=== PATIENT | male | born 1995 | race Caucasian/White ===

== ENCOUNTER 2022-07-10 15:37 | Inpatient (IN) ==
[2022-07-10 16:28] LABS: Basophils # (auto) 0.02 K/uL (0-0.2); Basophils % (auto) 0.2 %; Eosinophils # (auto) 0.05 K/uL (0-0.50); Eosinophils % (auto) 0.6 %; Hematocrit (blood only) 41.6 % (42.0-52.0); Hemoglobin 14.4 g/dl (14.0-18.0); Immature Granulocytes # (auto) 0.02 K/uL (0.01-0.20); Immature Granulocytes % (auto) 0.2 %; Lymphocytes # (auto) 0.98 K/uL (1.2-3.4); Lymphocytes % (auto) 10.8 %; Mean Corpuscular Hemoglobin 28.8 pg (25.0-34.0); Mean Corpuscular Hgb Conc 34.6 g/dL (32.0-36.0); Mean Corpuscular Volume 83.2 fL (80.0-100.0); Monocytes # (auto) 0.88 K/uL (0.11-0.59); Monocytes % (auto) 9.7 %; Neutrophils # (auto) 7.12 K/uL (1.40-6.50); Neutrophils % (auto) 78.5 %; Platelet Count 310 K/uL (130-400); RDW Coefficient of Variation 11.9 % (11.5-14.5); RDW Standard Deviation 36.5 fL (36.4-46.3); White Blood Count 9.07 K/ul (4.8-10.8)
[2022-07-10] MEDS ORDERED: SODIUM CHLORIDE 0.9% 1000ML 1,000 ML IV ONE ×2 (16:38→18:02)
--- NOTE | 2022-07-10 16:46 | Emergency Department Note ---
Impression & Plan Acute perforated appendicitis, Acute appendicitis ED Provider Note NAME: ALTON PLASCENCIA AGE: 26 SEX: M : 1995 ARRIVES VIA: Walk-In INFORMANT: Patient, ED PROVIDER(S): Anton Elizabeth DO CHIEF COMPLAINT: Abdominal pain HPI: The patient is a 26-year-old male who presented to the emergency department at the request of [facility] for an evaluation of abdominal pain. The patient states that he started having diffuse abdominal pain associated with gas. He was not sure if it was something he ate. This began about a week ago. The patient pr esents to the emergency department after being seen at [facility]. He had laboratory studies drawn and was told that his renal function was high and he needed a CAT scan of his abdomen to rule out appendicitis. The patient has no surgical history on his abdomen. He denies having any testicular pain. Initially he did have some decreased p.o. intake. After he was seen in an urgent care center approximately 3 days ago he has been taking ibuprofen. ROS: See above HPI for pertinent positives & negatives. A total of 10 systems reviewed and were otherwise negative. PAST MEDICAL HISTORY: See Below PAST SURGICAL HISTORY: See Below FAMILY HISTORY: See Below SOCIAL HISTORY: See Below HOME MEDICATIONS: See Below ALLERGIES: See Below VITALS: See Below PHYSICAL EXAMINATION: GENERAL: Patient is awake alert in no acute distress patient is resting comfortably and showing no signs of anxiety EYES: The conjunctivae are clear. The pupils are round and reactive. EARS, NOSE, MOUTH AND THROAT: The nose is without any evidence of any deformity. Mucous membranes are moist. Tongue is midline. NECK: The neck is nontender and supple. RESPIRATORY: Normal respiratory effort is noted there is no evidence of wheezing rhonchi or rales CARDIOVASCULAR: Regular rate and rhythm noted there no murmurs rubs or gallops normal S1 normal S2. GASTROINTESTINAL: The abdomen is soft and nondistended. There is right lower quadrant tenderness to palpation. There is no guarding rigidity. MUSCULOSKELETAL/EXTREMITIES: There is no evidence of gross deformity full range of motion is noted in the hips and shoulders. SKIN: There is no obvious evidence of any rash. There are no petechiae, pallor or cyanosis noted. NEUROLOGIC: Patient is awake alert and oriented x3. Gait was steady. MEDICAL DECISION MAKING: The patient is a 26-year-old male who presented to the emergency department for an evaluation of abdominal pain. The patient's history and physical exam was consistent with appendicitis. He has had pain since last week. The patient's laboratory results did not reveal significant elevation in his white blood cell count but he did have an elevation in his creatinine. The patient was treated with IV fluids multiple boluses. He was also given IV antibiotics after CT appeared to be consistent with a perforated appendicitis. I discussed patient's laboratory and radiographic studies with him. I discussed his condition with the on-call general surgeon. They have agreed to evaluate the patient in the emergency department for further management and disposition. Triage Nursing notes reviewed. Prior medical records reviewed Vital Signs: reviewed and remarkable for elevated blood pressure. Differential diagnosis: Etiologies such as appendicitis, diverticulitis, obstruction, inflammatory bowel disease, renal colic, PUD, biliary pathology, pancreatitis, mesenteric ischemia, aortic pathology, infections, genitourinary, UTI, perforated viscus, as well as others were entertained. ER treatment provided: See below Diagnostics interpreted by me: ECG: none Cardiac Monitoring: An order was placed for continuous cardiac monitoring. The monitor shows a rate of 57 bpm with sinus bradycardia. Laboratory studies: As stated above and show below. Imaging studies: See below. Radiographic imaging was reviewed by myself Consultation(s): I discussed this case with Dr. Mak who is on-call for the general surgical group. Past Med/Surg History Social History Smoking Status: Never smoker Feels Safe at Home: Yes Allergies Allergies Allergy/AdvReac Type Severity Reaction Status Date / Time pollen extracts Allergy Mild Congested Verified 07/10/22 20:08 Home Meds Home Medications Medication Instructions Recorded Confirmed No Known Home Medications 07/10/22 07/10/22 Results & Data (ED) Vital Signs Vital Signs - 24 hr 07/10/22 16:06 07/10/22 16:54 07/10/22 18:09 Temperature 37.2 C Temperature Source Temporal Artery Scan Pulse Rate 61 Pulse Rate [Finger] 63 57 L Respiratory Rate 18 18 16 Respiratory Effort / Characteristics Non-Labored Spontaneous Non-Labored Spontaneous Non-Labored Spontaneous Respiratory Depth Normal Normal Normal Respiratory Pattern Regular Blood Pressure 136/72 Blood Pressure [Right Arm] 129/70 142/77 H Blood Pressure Mean 93 Blood Pressure Mean [Right Arm] 89 98 Blood Pressure Position Sitting Blood Pressure Position [Right Arm] Sitting Pulse Oximetry 98 98 100 Oxygen Delivery Method Room Air Room Air Room Air Sepsis Recent Fever Within 48 Hours No Sepsis New/Unexplained Change in Mental Status N/A Sepsis Action Taken by Nursing No Action Required Home Medications Current Medication List: was personally reviewed by me Laboratory Data Attestation: I reviewed the patient's lab results. 07/10/22 16:14 07/10/22 16:14 Lab Results 07/10/22 07/10/22 07/10/22 Range/Units 16:14 16:14 16:14 WBC 9.07 (4.8-10.8) K/ul RBC 5.00 (4.70-6.10) M/uL Hgb 14.4 (14.0-18.0) g/dl Hct 41.6 L (42.0-52.0) % MCV 83.2 (80.0-100.0) fL MCH 28.8 (25.0-34.0) pg MCHC 34.6 (32.0-36.0) g/dL RDW Std Deviation 36.5 (36.4-46.3) fL RDW Coeff of Harlan 11.9 (11.5-14.5) % Plt Count 310 (130-400) K/uL MPV 10.0 (9.4-12.4) fL Immature Gran % (Auto) 0.2 % Neut % (Auto) 78.5 % Lymph % (Auto) 10.8 % [place] % (Auto) 9.7 % Eos % (Auto) 0.6 % Baso % (Auto) 0.2 % Neut # (Auto) 7.12 H (1.40-6.50) K/uL Lymph # (Auto) 0.98 L (1.2-3.4) K/uL [place] # (Auto) 0.88 H (0.11-0.59) K/uL Eos # (Auto) 0.05 (0-0.50) K/uL Baso # (Auto) 0.02 (0-0.2) K/uL Immature Gran # (Auto) 0.02 (0.01-0.20) K/uL Sodium 137 (136-145) mmol/L Potassium 3.9 (3.5-5.1) mmol/L Chloride 102 (98-107) mmol/L Carbon Dioxide 28 (21-32) mmol/L Anion Gap 7 (3-11) BUN 20 (6-23) mg/dl Creatinine 1.47 H (0.6-1.4) mg/dl Est Cr Clr Drug Dosing 94.4 ml/min Est GFR ( Amer) 74.2 ml/min Est GFR (Non-Af Amer) 64.0 ml/min BUN/Creatinine Ratio 13.6 (10-20) Glucose 88 (70-99(Fasting)) mg/dl Calcium 9.0 (8.5-10.1) mg/dl Total Bilirubin 0.6 (0.2-1.0) mg/dl AST 11 L (13-39) U/L ALT 14 (7-52) U/L Alkaline Phosphatase 76 (34-104) U/L Total Creatine Kinase 79 (30-223) U/L Total Protein 7.3 (6.0-8.3) gm/dl Albumin 4.3 (3.4-5.0) gm/dl Globulin 3.0 (2.5-4.0) gm/dl Albumin/Globulin Ratio 1.4 (0.9-2) Lipase 38 (11-82) U/L Urine Color Urine Appearance (Clear) Urine pH (4.5-7.5) Ur Specific [place] (1.000-1.030) Urine Protein (Negative) Urine Glucose (UA) (Negative) Urine Ketones (Negative) Urine Blood (Negative) Urine Nitrite (Negative) Urine Bilirubin (Negative) Urine Urobilinogen (Negative) Ur Leukocyte Esterase (Negative) Urine WBC (Auto) (0-5) /hpf Urine RBC (Auto) (0-4) /hpf U Hyaline Cast (Auto) (0-5) /lpf U Epithel Cells (Auto) (0-5) /lpf Urine Bacteria (Auto) (Negative) SARS-CoV-2, RNA, NAAT (NEGATIVE) 07/10/22 07/10/22 Range/Units 17:35 18:23 WBC (4.8-10.8) K/ul RBC (4.70-6.10) M/uL Hgb (14.0-18.0) g/dl Hct (42.0-52.0) % MCV (80.0-100.0) fL MCH (25.0-34.0) pg MCHC (32.0-36.0) g/dL RDW Std Deviation (36.4-46.3) fL RDW Coeff of Harlan (11.5-14.5) % Plt Count (130-400) K/uL MPV (9.4-12.4) fL Immature Gran % (Auto) % Neut % (Auto) % Lymph % (Auto) % [place]cl[place] % (Auto) % Eos % (Auto) % Baso % (Auto) % Neut # (Auto) (1.40-6.50) K/uL Lymph # (Auto) (1.2-3.4) K/uL [place] # (Auto) (0.11-0.59) K/uL Eos # (Auto) (0-0.50) K/uL Baso # (Auto) (0-0.2) K/uL Immature Gran # (Auto) (0.01-0.20) K/uL Sodium (136-145) mmol/L Potassium (3.5-5.1) mmol/L Chloride (98-107) mmol/L Carbon Dioxide (21-32) mmol/L Anion Gap (3-11) BUN (6-23) mg/dl Creatinine (0.6-1.4) mg/dl Est Cr Clr Drug Dosing ml/min Est GFR ( Amer) ml/min Est GFR (Non-Af Amer) ml/min BUN/Creatinine Ratio (10-20) Glucose (70-99(Fasting)) mg/dl Calcium (8.5-10.1) mg/dl Total Bilirubin (0.2-1.0) mg/dl AST (13-39) U/L ALT (7-52) U/L Alkaline Phosphatase (34-104) U/L Total Creatine Kinase (30-223) U/L Total Protein (6.0-8.3) gm/dl Albumin (3.4-5.0) gm/dl Globulin (2.5-4.0) gm/dl Albumin/Globulin Ratio (0.9-2) Lipase (11-82) U/L Urine Color Dark Yellow Urine Appearance Clear (Clear) Urine pH 6.0 (4.5-7.5) Ur Specific [place] 1.028 (1.000-1.030) Urine Protein Trace H (Negative) Urine Glucose (UA) Negative (Negative) Urine Ketones Negative (Negative) Urine Blood Negative (Negative) Urine Nitrite Negative (Negative) Urine Bilirubin Negative (Negative) Urine Urobilinogen Negative (Negative) Ur Leukocyte Esterase Negative (Negative) Urine WBC (Auto) 1-5 (0-5) /hpf Urine RBC (Auto) 0-4 (0-4) /hpf U Hyaline Cast (Auto) 1-5 (0-5) /lpf U Epithel Cells (Auto) 0-5 (0-5) /lpf Urine Bacteria (Auto) Negative (Negative) SARS-CoV-2, RNA, NAAT NEGATIVE (NEGATIVE) Administered Medications Discontinued Medications Sodium Chloride (Nss 1000ml) 1,000 mls @ 999 mls/hr IV .Q1H1M ONE Stop: 07/10/22 17:38 Last Infusion: 07/10/22 17:58 Dose: 0 mls/hr Documented By: Admin: 07/10/22 16:54 Dose: 999 mls/hr Documented By: DUNCAN Piperacillin Sod/Tazobactam Sod (Zosyn) 4.5 gm in 120 mls @ 240 mls/hr IV NOW ONE Stop: 07/10/22 18:31 Last Infusion: 07/10/22 19:05 Dose: 0 mls/hr Documented By: Admin: 07/10/22 18:06 Dose: 240 mls/hr Documented By: DUNCAN Sodium Chloride (Nss 1000ml) 1,000 mls @ 999 mls/hr IV .Q1H1M ONE Stop: 07/10/22 19:02 Last Infusion: 07/10/22 19:05 Dose: 0 mls/hr Documented By: Admin: 07/10/22 18:07 Dose: 999 mls/hr Documented By: DUNCAN Imaging Data Radiologist's Impression: Abdomen/Pelvis CT 07/10/22 16:[address] WITHOUT CONTRAST CT DOSE: 562.58 mGycm HISTORY: Right lower quadrant abdominal pain. TECHNIQUE: Multiaxial CT images of the abdomen and pelvis were performed without contrast. A dose lowering technique was utilized adhering to the principles of ALARA. COMPARISON STUDY: None. FINDINGS: The lung bases are clear. No pneumoperitoneum. No pneumatosis. The spleen is mildly enlarged. The unenhanced liver, gallbladder, pancreas, adrenal glands, and kidneys are unremarkable. No hydronephrosis. No retroperitoneal lymphadenopathy. Normal caliber abdominal aorta. Trace pelvic free fluid. Bladder wall thickening is likely due to underdistention. There are suboptimal evaluation for bowel pathology due to the lack of intravenous and oral contrast. However, there are no dilated loops of bowel to suggest an obstruction. There is ileocolic lymphadenopathy. There is inflammatory change within the right lower quadrant with an ill-defined round hypodense area within the right lower quadrant measuring approximately 6.2 cm. This is best seen on image 306. This abuts the cecal base. A normal appendix is not identified. Therefore, these findings favor perforated acute appendicitis with a developing phlegmon/abscess. This suspected developing phlegmon/abscess also abuts and displaces the distal ileum. Mild to moderate thickening of the distal ileum is likely reactive to the suspected appendicitis. IMPRESSION: There is inflammatory change within the right lower quadrant with an ill-defined round hypodense area within the right lower quadrant measuring approximately 6.2 which abuts the cecal base. A normal appendix is not identified. Therefore, these findings favor perforated acute appendicitis with a developing phlegmon/abscess. This suspected developing phlegmon/abscess also abuts and displaces the distal ileum. Mild to moderate thickening of the distal ileum is likely reactive to the suspected appendicitis. Of note, a terminal ileitis with secondary inflammatory change/phlegmon should also be considered within the d ifferential diagnosis but is considered less likely. ACT 112: Negative or not required by law. Electronically signed by: Munir Bass M.D. 07/10/2022 6:16 PM Discharge Plan Visit Data Chief Complaint: Abnormal Labs/Diagnostic Testing Stated Complaint: ABNORMAL LAB, REF FROM [facility] ED Provider: Anton Elizabeth Discharge Problem: Acute perforated appendicitis, Acute appendicitis Patient Disposition: Being Evaluated by Surgeon Forms Stand Alone Forms: My [facility] Prescriptions Prescriptions: No Action No Known Home Medications Referrals Referrals: PCP,NO [Physician] -
[2022-07-10 16:48] LABS: Albumin Level 4.3 gm/dl (3.4-5.0); Bilirubin,Total 0.6 mg/dl (0.2-1.0); Potassium 3.9 mmol/L (3.5-5.1)
[2022-07-10 16:54] LABS: Albumin Globulin Ratio 1.4 (0.9-2); BUN Creatinine Ratio 13.6 (10-20); Creatinine Clr Calc Pharmacy 94.4 ml/min; Est GFR (African American) 74.2 ml/min; Total Protein 7.3 gm/dl (6.0-8.3)
[2022-07-10 17:47] LABS: Appearance Urine Clear (Clear); Bacteria Urine Automated Negative (Negative); Bilirubin Urine Negative (Negative); Blood Urine Negative (Negative); Color Urine Dark Yellow; Epithelial Cell Urine Auto 0-5 /lpf (0-5); Glucose Urine UA Negative (Negative); Ketones Urine Negative (Negative); Leukocyte Esterase Urine Negative (Negative); Nitrite Urine Negative (Negative); Protein Urine Trace (Negative); RBC Urine Automated 0-4 /hpf (0-4); Specific Gravity Urine 1.028 (1.000-1.030); Urobilinogen Urine Negative (Negative)
[2022-07-10] MEDS ORDERED: PIPERACILLIN/TAZOBACTAM 4.5 GM/120 ML BAG IV ONE (18:02)
--- NOTE | 2022-07-10 18:19 | CT Scan Report ---
ABDOMEN AND PELVIS CT WITHOUT CONTRAST CT DOSE: 562.58 mGycm HISTORY: Right lower quadrant abdominal pain. TECHNIQUE: Multiaxial CT images of the abdomen and pelvis were performed without contrast. A dose lo wering technique was utilized adhering to the principles of ALARA. COMPARISON STUDY: None. FINDINGS: The lung bases are clear. No pneumoperitoneum. No pneumatosis. The spleen is mildly enlarge d. The unenhanced liver, gallbladder, pancreas, adrenal glands, and kidneys are unremarkable. No hydr onephrosis. No retroperitoneal lymphadenopathy. Normal caliber abdominal aorta. Trace pelvic free flu id. Bladder wall thickening is likely due to underdistention. There are suboptimal evaluation for bow el pathology due to the lack of intravenous and oral contrast. However, there are no dilated loops of bowel to suggest an obstruction. There is ileocolic lymphadenopathy. There is inflammatory change wi thin the right lower quadrant with an ill-defined round hypodense area within the right lower quadran t measuring approximately 6.2 cm. This is best seen on image 306. This abuts the cecal base. A normal appendix is not identified. Therefore, these findings favor perforated acute appendicitis with a dev eloping phlegmon/abscess. This suspected developing phlegmon/abscess also abuts and displaces the dis kevin ileum. Mild to moderate thickening of the distal ileum is likely reactive to the suspected append icitis. IMPRESSION: There is inflammatory change within the right lower quadrant with an ill-defined round hypodense area within the right lower quadrant measuring approximately 6.2 which abuts the cecal base. A normal lo endix is not identified. Therefore, these findings favor perforated acute appendicitis with a develop ing phlegmon/abscess. This suspected developing phlegmon/abscess also abuts and displaces the distal ileum. Mild to moderate thickening of the distal ileum is likely reactive to the suspected appendicit is. Of note, a terminal ileitis with secondary inflammatory change/phlegmon should also be considered within the differential diagnosis but is considered less likely. ACT 112: Negative or not required by law. Electronically signed by: Munir Bass M.D. 07/10/2022 6:16 PM
--- NOTE | 2022-07-10 19:33 | Surgery Consultation ---
Date of Consultation July 10, 2022 Assessment & Plan (1) Acute perforated appendicitis: with phelgmon in right lower quadrant. No abscess seen. Discussed that initial treatment is nonoperative with IVF resuscitation, bowel rest, IV antibiotics. If does not improve, would repeat CT scan in 48-72 hrs to assess for developing abscess (contrast preferred if possible by then). History of Present Illness Reason for Consultation: perforated appendicitis Requesting Physician: Servando Elizabeth MD History of Present Illness 26 yr old man presenting with right lower quadrant abdominal pain of one week's duration. Started after eating a chicken quesadilla, felt bloated, gassy, abdominal pain generalized but worse in the right lower quadrant. The bloating symptoms improved over the next few days but the pain persisted and continued to worsen. Sharp, stabbing at times, moderate intensity, would radiate across abdomen. No fevers or chills. Bowels functioning. No similar episodes. Associated with low appetite but no nausea or vomiting. Went to [facility] and found to have elevated CR. Sent to ER and CT scan shows changes c/w phlegmon in right lower quadrant, no abscess. Patient History Social History Smoking Status: Never smoker Feels Safe at Home: Yes Review of Systems Review of Systems: All systems reviewed & are unremarkable except as noted in HPI & below Physical Exam Constitutional: WD/WN, vitals as above Eyes: PERRL, conjunctivae normal, anicteric sclerae ENMT: external ear and nose normal, oropharynx normal Respiratory: normal respiratory effort, lungs clear to auscultation Cardiovascular: RRR, no murmur, no edema Gastrointestinal (Abdomen): Inspection/Auscultation: abdomen normal to inspection and normal bowel sounds; abdomen not distended Percussion/Palpation: + abdomen tender (right lower quadrant ), + guarding (RLQ ) and abdomen soft; no hernia Musculoskeletal: no cyanosis or clubbing, extremities motor strength 5/5 Neurologic: awake; no focal motor deficits Psychiatric: A+Ox3, euthymic affect Results & Data ([facility]) Vital Signs (Past 12 Hours) Vital Signs Temp Pulse Pulse Resp BP BP Pulse Ox 07/10/22 18:09 57 L 16 142/77 H 100 07/10/22 16:54 63 18 129/70 98 07/10/22 16:06 37.2 C 61 18 136/72 98 O2 Del Method 07/10/22 18:09 Room Air 07/10/22 16:54 Room Air 07/10/22 16:06 Room Air Laboratory Results 07/10/22 07/10/22 07/10/22 Range/Units 18:23 17:35 16:14 WBC (4.8-10.8) K/ul RBC (4.70-6.10) M/uL Hgb (14.0-18.0) g/dl Hct (42.0-52.0) % MCV (80.0-100.0) fL MCH (25.0-34.0) pg MCHC (32.0-36.0) g/dL RDW Std Deviation (36.4-46.3) fL RDW Coeff of Harlan (11.5-14.5) % Plt Count (130-400) K/uL MPV (9.4-12.4) fL Immature Gran % (Auto) % Neut % (Auto) % Lymph % (Auto) % [place] % (Auto) % Eos % (Auto) % Baso % (Auto) % Neut # (Auto) (1.40-6.50) K/uL Lymph # (Auto) (1.2-3.4) K/uL [place] # (Auto) (0.11-0.59) K/uL Eos # (Auto) (0-0.50) K/uL Baso # (Auto) (0-0.2) K/uL Immature Gran # (Auto) (0.01-0.20) K/uL Sodium (136-145) mmol/L Potassium (3.5-5.1) mmol/L Chloride (98-107) mmol/L Carbon Dioxide (21-32) mmol/L Anion Gap (3-11) BUN (6-23) mg/dl Creatinine (0.6-1.4) mg/dl Est Cr Clr Drug Dosing ml/min Est GFR ( Amer) ml/min Est GFR (Non-Af Amer) ml/min BUN/Creatinine Ratio (10-20) Glucose (70-99(Fasting)) mg/dl Calcium (8.5-10.1) mg/dl Total Bilirubin (0.2-1.0) mg/dl AST (13-39) U/L ALT (7-52) U/L Alkaline Phosphatase (34-104) U/L Total Creatine Kinase 79 (30-223) U/L Total Protein (6.0-8.3) gm/dl Albumin (3.4-5.0) gm/dl Globulin (2.5-4.0) gm/dl Albumin/Globulin Ratio (0.9-2) Lipase (11-82) U/L Urine Color Dark Yellow Urine Appearance Clear (Clear) Urine pH 6.0 (4.5-7.5) Ur Specific [place] 1.028 (1.000-1.030) Urine Protein Trace H (Negative) Urine Glucose (UA) Negative (Negative) Urine Ketones Negative (Negative) Urine Blood Negative (Negative) Urine Nitrite Negative (Negative) Urine Bilirubin Negative (Negative) Urine Urobilinogen Negative (Negative) Ur Leukocyte Esterase Negative (Negative) Urine WBC (Auto) 1-5 (0-5) /hpf Urine RBC (Auto) 0-4 (0-4) /hpf U Hyaline Cast (Auto) 1-5 (0-5) /lpf U Epithel Cells (Auto) 0-5 (0-5) /lpf Urine Bacteria (Auto) Negative (Negative) SARS-CoV-2, RNA, NAAT NEGATIVE (NEGATIVE) 07/10/22 07/10/22 Range/Units 16:14 16:14 WBC 9.07 (4.8-10.8) K/ul RBC 5.00 (4.70-6.10) M/uL Hgb 14.4 (14.0-18.0) g/dl Hct 41.6 L (42.0-52.0) % MCV 83.2 (80.0-100.0) fL MCH 28.8 (25.0-34.0) pg MCHC 34.6 (32.0-36.0) g/dL RDW Std Deviation 36.5 (36.4-46.3) fL RDW Coeff of Harlan 11.9 (11.5-14.5) % Plt Count 310 (130-400) K/uL MPV 10.0 (9.4-12.4) fL Immature Gran % (Auto) 0.2 % Neut % (Auto) 78.5 % Lymph % (Auto) 10.8 % [place] % (Auto) 9.7 % Eos % (Auto) 0.6 % Baso % (Auto) 0.2 % Neut # (Auto) 7.12 H (1.40-6.50) K/uL Lymph # (Auto) 0.98 L (1.2-3.4) K/uL [place] # (Auto) 0.88 H (0.11-0.59) K/uL Eos # (Auto) 0.05 (0-0.50) K/uL Baso # (Auto) 0.02 (0-0.2) K/uL Immature Gran # (Auto) 0.02 (0.01-0.20) K/uL Sodium 137 (136-145) mmol/L Potassium 3.9 (3.5-5.1) mmol/L Chloride 102 (98-107) mmol/L Carbon Dioxide 28 (21-32) mmol/L Anion Gap 7 (3-11) BUN 20 (6-23) mg/dl Creatinine 1.47 H (0.6-1.4) mg/dl Est Cr Clr Drug Dosing 94.4 ml/min Est GFR ( Amer) 74.2 ml/min Est GFR (Non-Af Amer) 64.0 ml/min BUN/Creatinine Ratio 13.6 (10-20) Glucose 88 (70-99(Fasting)) mg/dl Calcium 9.0 (8.5-10.1) mg/dl Total Bilirubin 0.6 (0.2-1.0) mg/dl AST 11 L (13-39) U/L ALT 14 (7-52) U/L Alkaline Phosphatase 76 (34-104) U/L Total Creatine Kinase (30-223) U/L Total Protein 7.3 (6.0-8.3) gm/dl Albumin 4.3 (3.4-5.0) gm/dl Globulin 3.0 (2.5-4.0) gm/dl Albumin/Globulin Ratio 1.4 (0.9-2) Lipase 38 (11-82) U/L Urine Color Urine Appearance (Clear) Urine pH (4.5-7.5) Ur Specific [place] (1.000-1.030) Urine Protein (Negative) Urine Glucose (UA) (Negative) Urine Ketones (Negative) Urine Blood (Negative) Urine Nitrite (Negative) Urine Bilirubin (Negative) Urine Urobilinogen (Negative) Ur Leukocyte Esterase (Negative) Urine WBC (Auto) (0-5) /hpf Urine RBC (Auto) (0-4) /hpf U Hyaline Cast (Auto) (0-5) /lpf U Epithel Cells (Auto) (0-5) /lpf Urine Bacteria (Auto) (Negative) SARS-CoV-2, RNA, NAAT (NEGATIVE) Diagnostic Findings ABDOMEN AND PELVIS CT WITHOUT CONTRAST CT DOSE: 562.58 mGycm HISTORY: Right lower quadrant abdominal pain. TECHNIQUE: Multiaxial CT images of the abdomen and pelvis were performed without contrast. A dose lowering technique was utilized adhering to the principles of ALARA. COMPARISON STUDY: None. FINDINGS: The lung bases are clear. No pneumoperitoneum. No pneumatosis. The spleen is mildly enlarged. The unenhanced liver, gallbladder, pancreas, adrenal glands, and kidneys are unremarkable. No hydronephrosis. No retroperitoneal lymphadenopathy. Normal caliber abdominal aorta. Trace pelvic free fluid. Bladder wall thickening is likely due to underdistention. There are suboptimal evaluation for bowel pathology due to the lack of intravenous and oral contrast. However, there are no dilated loops of bowel to suggest an obstruction. There is ileocolic lymphadenopathy. There is inflammatory change within the right lower quadrant with an ill-defined round hypodense area within the right lower quadrant measuring approximately 6.2 cm. This is best seen on image 306. This abuts the cecal base. A normal appendix is not identified. Therefore, these findings favor perforated acute appendicitis with a developing phlegmon/abscess. This suspected developing phlegmon/abscess also abuts and displaces the distal ileum. Mild to moderate thickening of the distal ileum is likely reactive to the suspected appendicitis. IMPRESSION: There is inflammatory change within the right lower quadrant with an ill-defined round hypodense area within the right lower quadrant measuring approximately 6.2 which abuts the cecal base. A normal appendix is not identified. Therefore, these findings favor perforated acute appendicitis with a developing phlegmon/abscess. This suspected developing phlegmon/abscess also abuts and displaces the distal ileum. Mild to moderate thickening of the distal ileum is likely reactive to the suspected appendicitis. Of note, a terminal ileitis with secondary inflammatory change/phlegmon should also be considered within the differential diagnosis but is considered less likely.
[2022-07-10] MEDS ORDERED: ONDANSETRON INJ 2 MG/ML 2 ML VIAL IV PRN (20:36)
[2022-07-10] MEDS ORDERED: MoRPHine SULFATE 2 MG/ML CARP IV PRN (20:36)
[2022-07-10] MEDS ORDERED: PROMETHAZINE HCL 12.5 MG in SODIUM CHLORIDE 0.9% 50 ML IV PRN (20:36)
[2022-07-10] MEDS: LACTATED RINGER'S 1,000 ML IV SCH (20:54)
[2022-07-10] MEDS: KETOROLAC TROMETHAMINE 15 MG/ML VIAL IV PRN (20:59)
[2022-07-10] MEDS: PIPERACILLIN/TAZOBACTAM 3.375 GM in DEXTROSE 5% 100 ML IV SCH (21:32)
[2022-07-11] MEDS: MoRPHine SULFATE 4 MG/ML 1 ML CARP\\VIAL IV PRN ×2 (00:05→22:42)
[2022-07-11] MEDS: LACTATED RINGER'S 1,000 ML IV SCH (05:55)
[2022-07-11] MEDS: KETOROLAC TROMETHAMINE 15 MG/ML VIAL IV PRN (05:55)
[2022-07-11] MEDS: PIPERACILLIN/TAZOBACTAM 3.375 GM in DEXTROSE 5% 100 ML IV SCH ×3 (05:55→21:58)
[2022-07-11 08:41] LABS: Basophils # (auto) 0.02 K/uL (0-0.2); Basophils % (auto) 0.3 %; Eosinophils # (auto) 0.07 K/uL (0-0.50); Eosinophils % (auto) 1.1 %; Hematocrit (blood only) 34.4 % (42.0-52.0); Immature Granulocytes # (auto) 0.02 K/uL (0.01-0.20); Immature Granulocytes % (auto) 0.3 %; Lymphocytes # (auto) 1.01 K/uL (1.2-3.4); Lymphocytes % (auto) 15.4 %; Mean Corpuscular Hemoglobin 29.2 pg (25.0-34.0); Mean Corpuscular Hgb Conc 34.9 g/dL (32.0-36.0); Mean Corpuscular Volume 83.7 fL (80.0-100.0); Mean Platelet Volume 10.4 fL (9.4-12.4); Monocytes # (auto) 0.75 K/uL (0.11-0.59); Monocytes % (auto) 11.5 %; Neutrophils # (auto) 4.67 K/uL (1.40-6.50); Neutrophils % (auto) 71.4 %; Platelet Count 248 K/uL (130-400); RDW Standard Deviation 36.4 fL (36.4-46.3); Red Blood Count 4.11 M/uL (4.70-6.10); White Blood Count 6.54 K/ul (4.8-10.8)
[2022-07-11 11:17] LABS: Calcium 8.6 mg/dl (8.5-10.1); Creatinine Clr Calc Pharmacy 86.3 ml/min; Est GFR (Non-African American) 57.8 ml/min; Potassium 3.8 mmol/L (3.5-5.1)
--- NOTE | 2022-07-11 11:56 | Surgery Progress Note ---
Date of Service July 11, 2022 Assessment & Plan (1) Acute perforated appendicitis: Plan: with phelgmon in right lower quadrant. No abscess seen. Appears to be responding to IV antibiotics. Will start full liquid diet. (2) Acute kidney injury: Plan: Cr up to 1.6 today. Will stop toradol. Continue to hydrate and monitor. Admission and Anticipated Discharge Date Admission Date: July 10, 2022 Subjective Less pain than yesterday. Still needing pain medications - toradol working well. No nausea. Feeling hungry. Physical Exam Constitutional: WD/WN, vitals as above Eyes: PERRL, conjunctivae normal, anicteric sclerae ENMT: external ear and nose normal, oropharynx normal Respiratory: normal respiratory effort, lungs clear to auscultation Cardiovascular: RRR, no murmur, no edema Gastrointestinal (Abdomen): Inspection/Auscultation: abdomen normal to inspection and normal bowel sounds; abdomen not distended Percussion/Palpation: + abdomen tender (right lower quadrant , less than y esterday) and abdomen soft; no guarding (RLQ ) and no hernia Musculoskeletal: no cyanosis or clubbing, extremities motor strength 5/5 Neurologic: awake; no focal motor deficits Psychiatric: A+Ox3, euthymic affect Results & Data ([facility]) Vital Signs (Past 12 Hours) Vital Signs Temp Pulse Resp BP Pulse Ox O2 Del Method 07/11/22 07:35 36.7 C 56 L 18 94/55 L 97 Room Air Laboratory Results 07/11/22 07/11/22 07/10/22 Range/Units 08:02 08:02 18:23 WBC 6.54 (4.8-10.8) K/ul RBC 4.11 L (4.70-6.10) M/uL Hgb 12.0 L (14.0-18.0) g/dl Hct 34.4 L (42.0-52.0) % MCV 83.7 (80.0-100.0) fL MCH 29.2 (25.0-34.0) pg MCHC 34.9 (32.0-36.0) g/dL RDW Std Deviation 36.4 (36.4-46.3) fL RDW Coeff of Harlan 12.0 (11.5-14.5) % Plt Count 248 (130-400) K/uL MPV 10.4 (9.4-12.4) fL Immature Gran % (Auto) 0.3 % Neut % (Auto) 71.4 % Lymph % (Auto) 15.4 % [place] % (Auto) 11.5 % Eos % (Auto) 1.1 % Baso % (Auto) 0.3 % Neut # (Auto) 4.67 (1.40-6.50) K/uL Lymph # (Auto) 1.01 L (1.2-3.4) K/uL [place] # (Auto) 0.75 H (0.11-0.59) K/uL Eos # (Auto) 0.07 (0-0.50) K/uL Baso # (Auto) 0.02 (0-0.2) K/uL Immature Gran # (Auto) 0.02 (0.01-0.20) K/uL Sodium 140 (136-145) mmol/L Potassium 3.8 (3.5-5.1) mmol/L Chloride 107 (98-107) mmol/L Carbon Dioxide 25 (21-32) mmol/L Anion Gap 8 (3-11) BUN 16 (6-23) mg/dl Creatinine 1.60 H (0.6-1.4) mg/dl Est Cr Clr Drug Dosing 86.3 ml/min Est GFR ( Amer) 67.0 ml/min Est GFR (Non-Af Amer) 57.8 ml/min BUN/Creatinine Ratio 10.0 (10-20) Glucose 98 (70-99(Fasting)) mg/dl Calcium 8.6 (8.5-10.1) mg/dl Total Bilirubin (0.2-1.0) mg/dl AST (13-39) U/L ALT (7-52) U/L Alkaline Phosphatase (34-104) U/L Total Creatine Kinase (30-223) U/L Total Protein (6.0-8.3) gm/dl Albumin (3.4-5.0) gm/dl Globulin (2.5-4.0) gm/dl Albumin/Globulin Ratio (0.9-2) Lipase (11-82) U/L Urine Color Urine Appearance (Clear) Urine pH (4.5-7.5) Ur Specific [place] (1.000-1.030) Urine Protein (Negative) Urine Glucose (UA) (Negative) Urine Ketones (Negative) Urine Blood (Negative) Urine Nitrite (Negative) Urine Bilirubin (Negative) Urine Urobilinogen (Negative) Ur Leukocyte Esterase (Negative) Urine WBC (Auto) (0-5) /hpf Urine RBC (Auto) (0-4) /hpf U Hyaline Cast (Auto) (0-5) /lpf U Epithel Cells (Auto) (0-5) /lpf Urine Bacteria (Auto) (Negative) SARS-CoV-2, RNA, NAAT NEGATIVE (NEGATIVE) 07/10/22 07/10/22 07/10/22 Range/Units 17:35 16:14 16:14 WBC (4.8-10.8) K/ul RBC (4.70-6.10) M/uL Hgb (14.0-18.0) g/dl Hct (42.0-52.0) % MCV (80.0-100.0) fL MCH (25.0-34.0) pg MCHC (32.0-36.0) g/dL RDW Std Deviation (36.4-46.3) fL RDW Coeff of Harlan (11.5-14.5) % Plt Count (130-400) K/uL MPV (9.4-12.4) fL Immature Gran % (Auto) % Neut % (Auto) % Lymph % (Auto) % [place] % (Auto) % Eos % (Auto) % Baso % (Auto) % Neut # (Auto) (1.40-6.50) K/uL Lymph # (Auto) (1.2-3.4) K/uL [place] # (Auto) (0.11-0.59) K/uL Eos # (Auto) (0-0.50) K/uL Baso # (Auto) (0-0.2) K/uL Immature Gran # (Auto) (0.01-0.20) K/uL Sodium 137 (136-145) mmol/L Potassium 3.9 (3.5-5.1) mmol/L Chloride 102 (98-107) mmol/L Carbon Dioxide 28 (21-32) mmol/L Anion Gap 7 (3-11) BUN 20 (6-23) mg/dl Creatinine 1.47 H (0.6-1.4) mg/dl Est Cr Clr Drug Dosing 94.4 ml/min Est GFR ( Amer) 74.2 ml/min Est GFR (Non-Af Amer) 64.0 ml/min BUN/Creatinine Ratio 13.6 (10-20) Glucose 88 (70-99(Fasting)) mg/dl Calcium 9.0 (8.5-10.1) mg/dl Total Bilirubin 0.6 (0.2-1.0) mg/dl AST 11 L (13-39) U/L ALT 14 (7-52) U/L Alkaline Phosphatase 76 (34-104) U/L Total Creatine Kinase 79 (30-223) U/L Total Protein 7.3 (6.0-8.3) gm/dl Albumin 4.3 (3.4-5.0) gm/dl Globulin 3.0 (2.5-4.0) gm/dl Albumin/Globulin Ratio 1.4 (0.9-2) Lipase 38 (11-82) U/L Urine Color Dark Yellow Urine Appearance Clear (Clear) Urine pH 6.0 (4.5-7.5) Ur Specific [place] 1.028 (1.000-1.030) Urine Protein Trace H (Negative) Urine Glucose (UA) Negative (Negative) Urine Ketones Negative (Negative) Urine Blood Negative (Negative) Urine Nitrite Negative (Negative) Urine Bilirubin Negative (Negative) Urine Urobilinogen Negative (Negative) Ur Leukocyte Esterase Negative (Negative) Urine WBC (Auto) 1-5 (0-5) /hpf Urine RBC (Auto) 0-4 (0-4) /hpf U Hyaline Cast (Auto) 1-5 (0-5) /lpf U Epithel Cells (Auto) 0-5 (0-5) /lpf Urine Bacteria (Auto) Negative (Negative) SARS-CoV-2, RNA, NAAT (NEGATIVE) 07/10/22 Range/Units 16:14 WBC 9.07 (4.8-10.8) K/ul RBC 5.00 (4.70-6.10) M/uL Hgb 14.4 (14.0-18.0) g/dl Hct 41.6 L (42.0-52.0) % MCV 83.2 (80.0-100.0) fL MCH 28.8 (25.0-34.0) pg MCHC 34.6 (32.0-36.0) g/dL RDW Std Deviation 36.5 (36.4-46.3) fL RDW Coeff of Harlan 11.9 (11.5-14.5) % Plt Count 310 (130-400) K/uL MPV 10.0 (9.4-12.4) fL Immature Gran % (Auto) 0.2 % Neut % (Auto) 78.5 % Lymph % (Auto) 10.8 % [place] % (Auto) 9.7 % Eos % (Auto) 0.6 % Baso % (Auto) 0.2 % Neut # (Auto) 7.12 H (1.40-6.50) K/uL Lymph # (Auto) 0.98 L (1.2-3.4) K/uL [place] # (Auto) 0.88 H (0.11-0.59) K/uL Eos # (Auto) 0.05 (0-0.50) K/uL Baso # (Auto) 0.02 (0-0.2) K/uL Immature Gran # (Auto) 0.02 (0.01-0.20) K/uL Sodium (136-145) mmol/L Potassium (3.5-5.1) mmol/L Chloride (98-107) mmol/L Carbon Dioxide (21-32) mmol/L Anion Gap (3-11) BUN (6-23) mg/dl Creatinine (0.6-1.4) mg/dl Est Cr Clr Drug Dosing ml/min Est GFR ( Amer) ml/min Est GFR (Non-Af Amer) ml/min BUN/Creatinine Ratio (10-20) Glucose (70-99(Fasting)) mg/dl Calcium (8.5-10.1) mg/dl Total Bilirubin (0.2-1.0) mg/dl AST (13-39) U/L ALT (7-52) U/L Alkaline Phosphatase (34-104) U/L Total Creatine Kinase (30-223) U/L Total Protein (6.0-8.3) gm/dl Albumin (3.4-5.0) gm/dl Globulin (2.5-4.0) gm/dl Albumin/Globulin Ratio (0.9-2) Lipase (11-82) U/L Urine Color Urine Appearance (Clear) Urine pH (4.5-7.5) Ur Specific [place] (1.000-1.030) Urine Protein (Negative) Urine Glucose (UA) (Negative) Urine Ketones (Negative) Urine Blood (Negative) Urine Nitrite (Negative) Urine Bilirubin (Negative) Urine Urobilinogen (Negative) Ur Leukocyte Esterase (Negative) Urine WBC (Auto) (0-5) /hpf Urine RBC (Auto) (0-4) /hpf U Hyaline Cast (Auto) (0-5) /lpf U Epithel Cells (Auto) (0-5) /lpf Urine Bacteria (Auto) (Negative) SARS-CoV-2, RNA, NAAT (NEGATIVE)
[2022-07-11] MEDS: SODIUM CHLORIDE 0.9% 1000ML 1,000 ML IV SCH (14:39)
[2022-07-12] MEDS: SODIUM CHLORIDE 0.9% 1000ML 1,000 ML IV SCH ×2 (00:38→10:02)
[2022-07-12] MEDS ORDERED: HYDROmorphone INJ 1 MG/ML SYRINGE IV PRN (03:12)
[2022-07-12] MEDS: HYDROmorphone INJ 0.5 MG/0.5 ML SYR IV PRN ×3 (03:19→21:16)
[2022-07-12] MEDS: PIPERACILLIN/TAZOBACTAM 3.375 GM in DEXTROSE 5% 100 ML IV SCH ×3 (06:00→21:12)
[2022-07-12 07:59] LABS: Basophils # (auto) 0.01 K/uL (0-0.2); Basophils % (auto) 0.1 %; Eosinophils # (auto) 0.09 K/uL (0-0.50); Eosinophils % (auto) 1.2 %; Hematocrit (blood only) 34.9 % (42.0-52.0); Hemoglobin 12.1 g/dl (14.0-18.0); Immature Granulocytes # (auto) 0.02 K/uL (0.01-0.20); Immature Granulocytes % (auto) 0.3 %; Lymphocytes # (auto) 1.24 K/uL (1.2-3.4); Lymphocytes % (auto) 16.1 %; Mean Corpuscular Hemoglobin 29.2 pg (25.0-34.0); Mean Corpuscular Hgb Conc 34.7 g/dL (32.0-36.0); Mean Corpuscular Volume 84.1 fL (80.0-100.0); Mean Platelet Volume 10.1 fL (9.4-12.4); Monocytes # (auto) 0.85 K/uL (0.11-0.59); Monocytes % (auto) 11.1 %; Neutrophils # (auto) 5.48 K/uL (1.40-6.50); Neutrophils % (auto) 71.2 %; Platelet Count 249 K/uL (130-400); RDW Coefficient of Variation 11.9 % (11.5-14.5); RDW Standard Deviation 36.5 fL (36.4-46.3); Red Blood Count 4.15 M/uL (4.70-6.10); White Blood Count 7.69 K/ul (4.8-10.8)
[2022-07-12 08:42] LABS: Calcium 8.4 mg/dl (8.5-10.1); Potassium 4.1 mmol/L (3.5-5.1)
[2022-07-12 08:48] LABS: BUN Creatinine Ratio 8.1 (10-20); Creatinine Clr Calc Pharmacy 80.3 ml/min; Est GFR (African American) 61.3 ml/min; Est GFR (Non-African American) 52.9 ml/min
--- NOTE | 2022-07-12 10:29 | Surgery Progress Note ---
Date of Service July 12, 2022 Assessment & Plan (1) Acute perforated appendicitis: Plan: with phelgmon in right lower quadrant. No abscess seen. no leukocytosis afebrile pain stable Plan: Continue conservative management with IV antibiotics encouraged ambulating hallway continue full liquids for today (2) Acute kidney injury: Plan: 1.47 on admission. 1.6 --> 1.7 today. Increase IV fluids to 125 mls/hr will consult nephrology for evaluation given continued elevation of creatinine despite IV fluid hydration and avoiding nephrotoxins monitor I/O's Dr. Syed has seen and examined pt, agrees with above. Admission and Anticipated Discharge Date Admission Date: July 10, 2022 Subjective feeling about the same pain about the same as yesterday, has not had any pain medication so far today no n,v tolerating full liquids urinating without difficulty Physical Exam Constitutional: WD/WN, vitals as above cooperative and comfortable; no acute distress and not ill appearing Respiratory: normal respiratory effort, lungs clear to auscultation + labored breathing Cardiovascular: RRR, no murmur, no edema Gastrointestinal (Abdomen): Inspection/Auscultation: abdomen normal to inspection and normal bowel sounds; abdomen not distended Percussion/Pal pation: + abdomen tender (RLQ on deep palpation) and abdomen soft; no guarding and abdomen not rigid Skin: no rashes, warm and dry Psychiatric: Orientation: alert and oriented x 3 Results & Data ([facility]) Vital Signs (Past 12 Hours) Vital Signs Temp Pulse Resp BP Pulse Ox O2 Del Method 07/12/22 07:41 36.6 C 70 18 104/63 97 Room Air Laboratory Results 07/12/22 07/12/22 07/11/22 Range/Units 07:30 07:30 08:02 WBC 7.69 (4.8-10.8) K/ul RBC 4.15 L (4.70-6.10) M/uL Hgb 12.1 L (14.0-18.0) g/dl Hct 34.9 L (42.0-52.0) % MCV 84.1 (80.0-100.0) fL MCH 29.2 (25.0-34.0) pg MCHC 34.7 (32.0-36.0) g/dL RDW Std Deviation 36.5 (36.4-46.3) fL RDW Coeff of Harlan 11.9 (11.5-14.5) % Plt Count 249 (130-400) K/uL MPV 10.1 (9.4-12.4) fL Immature Gran % (Auto) 0.3 % Neut % (Auto) 71.2 % Lymph % (Auto) 16.1 % [place] % (Auto) 11.1 % Eos % (Auto) 1.2 % Baso % (Auto) 0.1 % Neut # (Auto) 5.48 (1.40-6.50) K/uL Lymph # (Auto) 1.24 (1.2-3.4) K/uL [place] # (Auto) 0.85 H (0.11-0.59) K/uL Eos # (Auto) 0.09 (0-0.50) K/uL Baso # (Auto) 0.01 (0-0.2) K/uL Immature Gran # (Auto) 0.02 (0.01-0.20) K/uL Sodium 140 140 (136-145) mmol/L Potassium 4.1 3.8 (3.5-5.1) mmol/L Chloride 108 H 107 (98-107) mmol/L Carbon Dioxide 29 25 (21-32) mmol/L Anion Gap 3 8 (3-11) BUN 14 16 (6-23) mg/dl Creatinine 1.72 H 1.60 H (0.6-1.4) mg/dl Est Cr Clr Drug Dosing 80.3 86.3 ml/min Est GFR ( Amer) 61.3 67.0 ml/min Est GFR (Non-Af Amer) 52.9 57.8 ml/min BUN/Creatinine Ratio 8.1 L 10.0 (10-20) Glucose 95 98 (70-99(Fasting)) mg/dl Calcium 8.4 L 8.6 (8.5-10.1) mg/dl
[2022-07-12] MEDS ORDERED: oxyCODONE/ACETAMINOPHEN 5mg/325mg TAB PO PRN (13:01)
--- NOTE | 2022-07-12 16:09 | Nephrology Consultation ---
Date of Consultation July 12, 2022 Assessment & Plan (1) Acute kidney injury: Stage 1 nonoliguric ELLE: presume ATN in setting of acute illness. no baseline renal data available. creatinine on presentation 1.4 > 1.7 today. assuming accurate I/O, he is about 4L positive on the admission to date and nonoliguric. -cont strict I/O -daily bmp -ordered repeat UA -changed IV fluids to normosol same rate -no indication at this time to discuss dialysis -cont to avoid IV contrast unless life/limbsaving for now -cont to avoid nsaids History of Present Illness Reason for Consultation: ELLE, perforated appendicitis Requesting Physician: Dr Mak Attending Physician: Maria Guadalupe Mak MD History of Present Illness 26 y/o M whom I'm asked to see for ELLE was admitted here on 07/10 w/ acute perforated appendicitis. No PMH and no OP meds. He is being managed conservatively with bowel rest, IV fluids, abtx. Plan is for repeat CT scan if no symptomatic improvement next 24 hrs to eval for emerging abscess. Admission creatinine 1.4; increased to 1.7 today. NS rate increased to 125 ml/ hr today. his parents are at bedside today. 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 too 600 mg ibuprofen tid for abotu 3 days just prior to admission he denies worseningabdominal pain; states he's on clears and tolerating; no sob, no edema, no rash Allergies Allergy/AdvReac Type Severity Reaction Status Date / Time pollen extracts Allergy Mild Congested Verified 07/10/22 20:08 Home Medications Medication Instructions Recorded Confirmed Type No Known Home Medications 07/10/22 07/10/22 History Patient History Social History Smoking Status: Never smoker Do You Dip or Chew Tobacco: No; Hx Alcohol Use: No Hx Substance Use: No Preferred Language: Greek Communication Ability: Effective Edge Bander Hand Required: No Beliefs That Will Affect Care: None Current Living Situation: Alone Other Information That Helps Us Care for You: No Feels Safe at Home: Yes Safety Concerns: Feels Safe At This Time Assistive Devices: None Immunizations: No FH of CKD/ESRD. Review of Systems Review of Systems: All systems reviewed & are unremarkable except as noted in HPI & below Physical Exam Constitutional: well developed (relatively muscular) and well nourished Eyes: EOM intact bilaterally ENMT: Ears: no external ear abnormality Nose: no external nose abnormality Mouth: + dry oral mucous membranes Neck: no nuchal rigidity Respiratory: normal respiratory effort Auscultation: + diminished lung sounds Cardiovascular: Rate/Rhythm: regular rate and regular rhythm Extremities: no edema Gastrointestinal (Abdomen): Inspection/Auscultation: normal bowel sounds Percussion/Palpation: abdomen soft; abdomen nontender Musculoskeletal: Extremities: strength 5/5 throughout Skin: no rashes, warm and dry Neurologic: traylor, fluent speech, no tremor Results & Data ([facility]) Vital Signs (Past 12 Hours) Vital Signs Temp Pulse Resp BP Pulse Ox O2 Del Method 07/12/22 15:58 37.0 C 66 18 124/65 97 Room Air 07/12/22 07:41 36.6 C 70 18 104/63 97 Room Air Laboratory Results 07/12/22 07:30 07/12/22 07:30 Admission UA > 1028 w/ dipstick trace protein else bland Diagnostic Findings CT a/p 07/10 no con FINDINGS: The lung bases are clear. No pneumoperitoneum. No pneumatosis. The sp della is mildly enlarged. The unenhanced liver, gallbladder, pancreas, adrenal glands, and kidneys are unremarkable. No hydronephrosis. No retroperitoneal lymphadenopathy. Normal caliber abdominal aorta. Trace pelvic free fluid. Bladder wall thickening is likely due to underdistention. There are suboptimal evaluation for bowel pathology due to the lack of intravenous and oral contrast. However, there are no dilated loops of bowel to suggest an obstruction. There is ileocolic lymphadenopathy. There is inflammatory change within the right lower quadrant with an ill-defined round hypodense area within the right lower quadrant measuring approximately 6.2 cm. This is best seen on image 306. This a buts the cecal base. A normal appendix is not identified. Therefore, these findings favor perforated acute appendicitis with a developing phlegmon/abscess. This suspected developing phlegmon/abscess also abuts and displaces the distal ileum. Mild to moderate thickening of the distal ileum is likely reactive to the suspected appendicitis. IMPRESSION: There is inflammatory change within the right lower quadrant with an ill-defined round hypodense area within the right lower quadrant measuring approximately 6.2 which abuts the cecal base. A normal appendix is not identified. Therefore, these findings favor perforated acute appendicitis with a developing phlegmon/abscess. This suspected developing phlegmon/abscess also abuts and displaces the distal ileum. Mild to moderate thickening of the distal ileum is likely reactive to the suspected appendicitis. Of note, a terminal ileitis with secondary inflammatory change/phlegmon should also be considered within the differential diagnosis but is considered less likely.
[2022-07-12] MEDS: NORMOSOL-R 1,000 ML IV SCH (16:59)
[2022-07-12 20:24] LABS: Appearance Urine Clear (Clear); Bilirubin Urine Negative (Negative); Blood Urine Negative (Negative); Color Urine Yellow; Glucose Urine UA Negative (Negative); Ketones Urine Negative (Negative); Leukocyte Esterase Urine Negative (Negative); Nitrite Urine Negative (Negative); Protein Urine Negative (Negative); Urobilinogen Urine Negative (Negative); pH Urine 6.5 (4.5-7.5)
[2022-07-13] MEDS: NORMOSOL-R 1,000 ML IV SCH ×4 (00:10→23:24)
[2022-07-13] MEDS: PIPERACILLIN/TAZOBACTAM 3.375 GM in DEXTROSE 5% 100 ML IV SCH ×3 (05:38→21:48)
--- NOTE | 2022-07-13 08:05 | Nephrology Progress Note ---
Date of Service July 13, 2022 Assessment & Plan (1) Acute kidney injury: Plan: Stage 1 nonoliguric ELLE: presume ATN in setting of acute illness. no baseline renal data available. creatinine on presentation 1.4 > 1.7 on 07/12; 1.6 today. assuming accurate I/O, he is about 4L positive on the admission to date and nonoliguric. repeat UA is bland -cont strict I/O -daily bmp -cont normosol same rate for now -no indication at this time to discuss dialysis -cont to avoid IV contrast unless life/limbsaving for now -cont to avoid nsaids d/w pt and family > recommend we plan to f/u in office 2-3 wks after d/c to revisit labs, reevaluate his clinical status to ensure no underlying renal disease and full resolution of ELLE and to est renal baseline will cont to follow while in hospital Admission and Anticipated Discharge Date Admission Date: July 10, 2022 Subjective no interval events. surgery advancing diet. no dyspnea. Review of Systems Review of Systems: All systems reviewed & are unremarkable except as noted in Subjective Physical Exam Constitutional: well developed (relatively muscular) and well nourished Eyes: EOM intact bilaterally ENMT: Ears: no external ear abnormality Nose: no external nose abnormality Mouth: + dry oral mucous membranes Neck: no nuchal rigidity Respiratory: normal respiratory effort Auscultation: + diminished lung s ounds Cardiovascular: Rate/Rhythm: regular rate and regular rhythm Extremities: no edema Gastrointestinal (Abdomen): Inspection/Auscultation: normal bowel sounds Percussion/Palpation: abdomen soft; abdomen nontender Musculoskeletal: Extremities: strength 5/5 throughout Skin: no rashes, warm and dry Neurologic: traylor, fluent speech Psychiatric: Orientation: oriented x 3 Results & Data ([facility]) Vital Signs (Past 12 Hours) Vital Signs Temp Pulse Resp BP Pulse Ox O2 Del Method 07/13/22 07:16 36.7 C 51 L 16 100/63 97 Room Air 07/12/22 21:59 37.2 C 67 16 109/62 94 Room Air 07/12/22 20:26 Room Air Laboratory Results repeat UA completely bland 07/13/22 08:03 07/13/22 08:03
[2022-07-13 08:28] LABS: Basophils # (auto) 0.01 K/uL (0-0.2); Basophils % (auto) 0.2 %; Eosinophils % (auto) 1.6 %; Hematocrit (blood only) 36.5 % (42.0-52.0); Hemoglobin 12.6 g/dl (14.0-18.0); Immature Granulocytes # (auto) 0.02 K/uL (0.01-0.20); Immature Granulocytes % (auto) 0.3 %; Lymphocytes % (auto) 20.4 %; Mean Corpuscular Hemoglobin 29.2 pg (25.0-34.0); Mean Corpuscular Hgb Conc 34.5 g/dL (32.0-36.0); Mean Corpuscular Volume 84.5 fL (80.0-100.0); Mean Platelet Volume 10.2 fL (9.4-12.4); Monocytes % (auto) 9.4 %; Neutrophils # (auto) 4.35 K/uL (1.40-6.50); Neutrophils % (auto) 68.1 %; Platelet Count 302 K/uL (130-400); RDW Coefficient of Variation 11.9 % (11.5-14.5); RDW Standard Deviation 36.6 fL (36.4-46.3); Red Blood Count 4.32 M/uL (4.70-6.10); White Blood Count 6.38 K/ul (4.8-10.8)
[2022-07-13 09:08] LABS: BUN Creatinine Ratio 7.4 (10-20); Calcium 8.9 mg/dl (8.5-10.1); Creatinine Clr Calc Pharmacy 84.7 ml/min; Est GFR (African American) 65.5 ml/min; Est GFR (Non-African American) 56.5 ml/min
--- NOTE | 2022-07-13 09:12 | Surgery Progress Note ---
Date of Service July 13, 2022 Assessment & Plan (1) Acute perforated appendicitis: Plan: with phlegmon in right lower quadrant. No abscess seen. no leukocytosis afebrile pain improving Plan: Continue conservative management with IV antibiotics (currently about 56 hours of IV zosyn) encouraged ambulating hallway advance to soft diet for lunch, advised to go slow SCDs for dvt prophylaxis (2) Acute kidney injury: Plan: 1.47 on admission. 1.6 --> 1.7 --> 1.6 today Continue IV fluids, Normosol 125 mls/hr monitor I/O's Discussed with Dr. Syed who agrees with above. Admission and Anticipated Discharge Date Admission Date: July 10, 2022 Subjective feeling better today pain is better and less today tolerating full liquids passing gas, no bowel movement yet no n,v ambulating urinating without difficulty Physical Exam Constitutional: WD/WN, vitals as above cooperative and comfortable; no acute distress and not ill appearing Neck: normal visual inspection and trachea midline Gastrointestinal (Abdomen): Inspection/Auscultation: abdomen normal to inspection and normal bowel sounds; abdomen not distended Percussion/Palpation: + abdomen tender (RLQ on deep palpation, improving) and abdomen soft; no guarding and abdomen not rigid Skin: no rashes, warm and dry Psychiatric: A+Ox3, euthymic affect Results & Data ([facility]) Vital Signs (Past 12 Hours) Vital Signs Temp Pulse Resp BP Pulse Ox O2 Del Method 07/13/22 07:16 36.7 C 51 L 16 100/63 97 Room Air 07/12/22 21:59 37.2 C 67 16 109/62 94 Room Air Laboratory Results 07/13/22 07/13/22 07/12/22 Range/Units 08:03 08:03 19:55 WBC 6.38 (4.8-10.8) K/ul RBC 4.32 L (4.70-6.10) M/uL Hgb 12.6 L (14.0-18.0) g/dl Hct 36.5 L (42.0-52.0) % MCV 84.5 (80.0-100.0) fL MCH 29.2 (25.0-34.0) pg MCHC 34.5 (32.0-36.0) g/dL RDW Std Deviation 36.6 (36.4-46.3) fL RDW Coeff of Harlan 11.9 (11.5-14.5) % Plt Count 302 (130-400) K/uL MPV 10.2 (9.4-12.4) fL Immature Gran % (Auto) 0.3 % Neut % (Auto) 68.1 % Lymph % (Auto) 20.4 % [place] % (Auto) 9.4 % Eos % (Auto) 1.6 % Baso % (Auto) 0.2 % Neut # (Auto) 4.35 (1.40-6.50) K/uL Lymph # (Auto) 1.30 (1.2-3.4) K/uL [place] # (Auto) 0.60 H (0.11-0.59) K/uL Eos # (Auto) 0.10 (0-0.50) K/uL Baso # (Auto) 0.01 (0-0.2) K/uL Immature Gran # (Auto) 0.02 (0.01-0.20) K/uL Sodium 139 (136-145) mmol/L Potassium 4.0 (3.5-5.1) mmol/L Chloride 105 (98-107) mmol/L Carbon Dioxide 28 (21-32) mmol/L Anion Gap 6 (3-11) BUN 12 (6-23) mg/dl Creatinine 1.63 H (0.6-1.4) mg/dl Est Cr Clr Drug Dosing 84.7 ml/min Est GFR ( Amer) 65.5 ml/min Est GFR (Non-Af Amer) 56.5 ml/min BUN/Creatinine Ratio 7.4 L (10-20) Glucose 96 (70-99(Fasting)) mg/dl Calcium 8.9 (8.5-10.1) mg/dl Urine Color Yellow Urine Appearance Clear (Clear) Urine pH 6.5 (4.5-7.5) Ur Specific [place] 1.010 (1.000-1.030) Urine Protein Negative (Negative) Urine Glucose (UA) Negative (Negative) Urine Ketones Negative (Negative) Urine Blood Negative (Negative) Urine Nitrite Negative (Negative) Urine Bilirubin Negative (Negative) Urine Urobilinogen Negative (Negative) Ur Leukocyte Esterase Negative (Negative)
[2022-07-13] MEDS: ACETAMINOPHEN 325 MG TAB PO PRN ×2 (09:26→21:51)
[2022-07-14] MEDS: HYDROmorphone INJ 0.5 MG/0.5 ML SYR IV PRN (01:56)
[2022-07-14] MEDS: PIPERACILLIN/TAZOBACTAM 3.375 GM in DEXTROSE 5% 100 ML IV SCH ×2 (05:14→15:13)
[2022-07-14] MEDS: NORMOSOL-R 1,000 ML IV SCH (07:38)
[2022-07-14 09:45] LABS: Basophils # (auto) 0.02 K/uL (0-0.2); Basophils % (auto) 0.5 %; Eosinophils # (auto) 0.12 K/uL (0-0.50); Eosinophils % (auto) 3.2 %; Hematocrit (blood only) 40.3 % (42.0-52.0); Hemoglobin 13.7 g/dl (14.0-18.0); Immature Granulocytes # (auto) 0.05 K/uL (0.01-0.20); Immature Granulocytes % (auto) 1.3 %; Lymphocytes # (auto) 1.19 K/uL (1.2-3.4); Lymphocytes % (auto) 32.1 %; Mean Corpuscular Hemoglobin 29.1 pg (25.0-34.0); Mean Corpuscular Volume 85.7 fL (80.0-100.0); Mean Platelet Volume 9.9 fL (9.4-12.4); Monocytes # (auto) 0.35 K/uL (0.11-0.59); Monocytes % (auto) 9.4 %; Neutrophils # (auto) 1.98 K/uL (1.40-6.50); Neutrophils % (auto) 53.5 %; Platelet Count 334 K/uL (130-400); RDW Standard Deviation 37.9 fL (36.4-46.3); White Blood Count 3.71 K/ul (4.8-10.8)
--- NOTE | 2022-07-14 10:09 | Surgery Progress Note ---
Date of Service July 14, 2022 Assessment & Plan (1) Acute perforated appendicitis: Plan: with phlegmon in right lower quadrant. No abscess seen. no leukocytosis afebrile pain continues to improve Plan: Continue conservative management with IV antibiotics (currently about 3/5 days of IV zosyn) encouraged ambulating hallway continue soft diet SCDs for dvt prophylaxis await am labs possibly home this afternoon with 10 days of oral antibiotics (2) Acute kidney injury: Plan: 1.47 on admission. 1.6 --> 1.7 --> 1.6 --> 1.84 today adequate urine output Per nephrology recommendations: if discharge home can repeat BMP on 07/17 and 07/20 and then 2 week follow-up with Dr. Watson with repeat bmp, cystatin c, uacm, and ACR Patient seen at 12:30 pm continues to do well tolerating soft diet minimal pain ready to go home discharge instructions reviewed Rx for PO Cipro/flagyl for 10 days and Percocet prn pain sent to pharmacy reviewed Nephrology recommendations with patient and ordered blood work f/u Nephrology 2 weeks f/u general surgery [address] Syed was present during my examination this am during rounds and agrees with above. Admission and Anticipated Discharge Date Admission Date: July 13, 2022 Subjective feeling good pain is the same as yesterday, not worse. Feels more like hunger pains passing gas and small bowel movement yesterday tolerating soft diet no n,v urinating without difficulty Physical Exam Constitutional: WD/WN, vitals as above cooperative and comfortable; no acute distress and not ill appearing Respiratory: normal respiratory effort; no respiratory distress and no labored breathing Gastrointestinal (Abdomen): Inspection/Auscultation: abdomen normal to ins pection; abdomen not distended Percussion/Palpation: + abdomen tender (RLQ on deep palpation) and abdomen soft; no guarding, abdomen not rigid and abdomen not firm Skin: no rashes, warm and dry Psychiatric: A+Ox3, euthymic affect Results & Data ([facility]) Vital Signs (Past 12 Hours) Vital Signs Temp Pulse Resp BP Pulse Ox O2 Del Method 07/14/22 07:47 36.4 C L 56 L 16 106/65 98 Room Air Laboratory Results 07/14/22 07/14/22 Range/Units 09:16 09:16 WBC 3.71 L (4.8-10.8) K/ul RBC 4.70 (4.70-6.10) M/uL Hgb 13.7 L (14.0-18.0) g/dl Hct 40.3 L (42.0-52.0) % MCV 85.7 (80.0-100.0) fL MCH 29.1 (25.0-34.0) pg MCHC 34.0 (32.0-36.0) g/dL RDW Std Deviation 37.9 (36.4-46.3) fL RDW Coeff of Harlan 12.0 (11.5-14.5) % Plt Count 334 (130-400) K/uL MPV 9.9 (9.4-12.4) fL Immature Gran % (Auto) 1.3 % Neut % (Auto) 53.5 % Lymph % (Auto) 32.1 % [place] % (Auto) 9.4 % Eos % (Auto) 3.2 % Baso % (Auto) 0.5 % Neut # (Auto) 1.98 (1.40-6.50) K/uL Lymph # (Auto) 1.19 L (1.2-3.4) K/uL [place] # (Auto) 0.35 (0.11-0.59) K/uL Eos # (Auto) 0.12 (0-0.50) K/uL Baso # (Auto) 0.02 (0-0.2) K/uL Immature Gran # (Auto) 0.05 (0.01-0.20) K/uL Sodium Pending Potassium Pending Chloride Pending Carbon Dioxide Pending Anion Gap Pending BUN Pending Creatinine Pending Est Cr Clr Drug Dosing Pending Est GFR ( Amer) Pending Est GFR (Non-Af Amer) Pending BUN/Creatinine Ratio Pending Glucose Pending Calcium Pending
[2022-07-14 10:22] LABS: Calcium 9.1 mg/dl (8.5-10.1); Creatinine Clr Calc Pharmacy 75.1 ml/min; Est GFR (African American) 56.5 ml/min; Est GFR (Non-African American) 48.8 ml/min; Potassium 3.9 mmol/L (3.5-5.1)
--- NOTE | 2022-07-14 10:51 | Nephrology Progress Note ---
Date of Service July 14, 2022 Assessment & Plan (1) Acute kidney injury: Plan: Stage 1 nonoliguric ELLE: presume ATN in setting of acute illness. no baseline renal data available. creatinine on presentation 1.4 > 1.7 > 1.6; 1.8 today. assuming accurate I/O, he is about 500mL positive on the admission to date and nonoliguric. repeat UA is bland. -cont strict I/O -daily bmp -stopped normosol this am -no indication at this time to discuss dialysis -cont to avoid IV contrast unless life/limbsaving for now -cont to avoid nsaids If he stay in the hospital, recommend daily bmp and will cont to follow. If not staying in hospital, from renal standpoint this could be followed as an outpatient to reevaluate renal status montez from standpoint of baseline renal function, ELLE if present NEPHRO D/C RECS (in case of d/c) -repeat bmp on 24 in AM and on 07/20 as well; recommend [facility] lab for faster response/result posting -then HOSPITAL DISCHARGE appt w/ me in [facility] [place] in 2 wks w/ repeat bmp, cystatin C, uacm, ACR -no NSAIDS or PPI pls after d/c will cont to follow while in hospital (2) Bradycardia: Plan: asymptomatic bradycardia noted past 18 hrs; ? mild decrease in renal perfusion? intermittent lower range BP reads noted. may simply be his baseline -low threshold for ECG, TFTs, mag, phos as inpt or outpt if creatinine continues to uptrend Admission and Anticipated Discharge Date Admission Date: July 13, 2022 Subjective started on low fiber diet yesterday; no other interval events except that he is 3L negative at least past 24 hr. no abd sx except vague RUQ discomfort Review of Systems Review of Systems: All systems reviewed & are unremarkable except as noted in Subjective Physical Exam Constitutional: well developed (relatively muscular/tall) and well nourished Eyes: EOM intact bilaterally ENMT: Ears: no external ear abnormality Nose: no external nose abnormality Mouth: + dry oral mucous membranes Neck: no nuchal rigidity Respiratory: normal respiratory effort Auscultation: + diminished lung sounds Cardiovascular: Rate/Rhythm: regular rate and regular rhythm Extremities: no edema Gastrointestinal (Abdomen): Inspection/Auscultation: normal bowel sounds Percussion/Palpation: abdomen soft; abdomen nontender Musculoskeletal: Extremities: strength 5/5 throughout Skin: no rashes, warm and dry Neurologic: ambulatory w/o asst, traylor, fluent speech, no tremor Psychiatric: Orientation: oriented x 3 Results & Data ([facility]) Vital Signs (Past 12 Hours) Vital Signs Temp Pulse Resp BP Pulse Ox O2 Del Method 07/14/22 07:47 36.4 C L 56 L 16 106/65 98 Room Air Laboratory Results 07/14/22 09:16 07/14/22 09:16 Diagnostic Findings no new imaging
--- NOTE | 2022-07-16 14:41 | Discharge Summary ---
Date of Service July 16, 2022 Admission HPI Per Admitting Provider 26 yr old man presenting with right lower quadrant abdominal pain of one week's duration. Started after eating a chicken quesadilla, felt bloated, gassy, abdominal pain generalized but worse in the right lower quadrant. The bloating symptoms improved over the next few days but the pain persisted and continued to worsen. Sharp, stabbing at times, moderate intensity, would radiate across abdomen. No fevers or chills. Bowels functioning. No similar episodes. Associated with low appetite but no nausea or vomiting. Went to [facility] and found to have elevated CR. Sent to ER and CT scan shows changes c/w phlegmon in right lower quadrant, no abscess. Principal Diagnosis Acute perforated appendicitis with phelgmon Discharge Data Allergies Allergy/AdvReac Type Severity Reaction Status Date / Time pollen extracts Allergy Mild Congested Verified 07/10/22 20:08 Consultations 07/10/22 18:36 Consult General Surgery Stat 07/12/22 10:24 Consult Nephrology Routine Ordered Studies 07/10/22 16:44 CT abd pelvis wo con Stat Hospital Course (1) Acute perforated appendicitis: Patient was admitted to hospital for conservative management with IV antibitiocs in form of Zosyn. Patients diet was slowly advanced to low fiber diet as tolerated. His leukocytosis resolved and he was afebrile. His pain continued to improve throughout his hospital stay. CT scan was not repeat given clinical improved and ELLE. He was discharged home with 10 days of PO Cipro and Flagyl and 2 week follow up in surgery office. (2) Acute kidney injury: Given his elevated creatinine, nephrology was consulted. Presumed ELLE based on acute illness. He continued to make adequate urine. Creatinine on admission was 1.4. On subsequent days 1.6 --> 1.7 --> 1.6 --> 1.84 on day of discharge. He was evaluated by nephrology and radha for discharge with repeat bmp on 05/16 and 05/19 and then 2 week follow-up with Dr. Watson with repeat bmp and further blood work. Total Time Total Time Spent Total Time Spent (In Minutes): 120 minutes Total Time Includes: Examination of the Patient, Discharge Planning, Medication Reconciliation, Communication With Other Providers and Other (outpatient lab ordering) Discharge Plan Discharge Items Patient Disposition: Home - Self-Care Reason For Visit: ACUTE PERFORATED APPENDICITIS Discharge Diagnosis: Acute perforated appendicitis Activity: Per Instructions section Lifting: Wait until after follow-up appointment Non-emergency contact: Primary Care Provider, Surgeon and Outbound Sales Consultant Call non-emergency contact if: you have any medication questions, your pain is unusual for you, your pain is concerning for you, you have a fever and your temperature is above 101 Follow-up/Referrals: Lorri Watson MD, PhD [Physician] - 08/03/22 9:00 am (Please arrive at 0845 for 9 am appointment) [facility] [Primary Care Provider] - Jody Syed MD [Physician] - 07/28/22 9:00 am (please arrive at 0845 for 9 am appointment time) Diet: Low Fiber Ambulatory Orders: Basic Metabolic Panel (Routine) Timeframe: 20220720 Location: Determined by Patient Ordered By: Randa Roche Basic Metabolic Panel (Routine) Timeframe: 20220717 Location: Outside Location Ordered By: Randa Roche Add Attending Provider Instructions: Activity Recommendations: - No strenuous activity or heavy lifting until seen in follow-up - You may drive as long as you are not having pain and not taking any narcotic pain medication Diet: - Low fiber diet for 1-2 weeks. SPECIAL CARE INSTRUCTIONS: - Call the surgeon's office with any questions or concerns - - (ex. temperature higher than 101 degrees, increasing pain, nausea or vomiting). MEDICATIONS: - May take extra strength Tylenol for mild to moderate pain -650 mg Tylenol every 6 hours as needed - Percocet 1 every 6 hours, as needed for moderate to severe pain - Recommend daily stool softener (Colace) while taking narcotic pain medication to prevent constipation or straining. Drink plenty of water daily. - Take antibiotics as prescribed for 10 days. - Cipro twice a day - Flagyl three times a day - AVOID any NSAIDs( Ibuprofen, Motrin, Aleve, Aspirin) given the acute kidney injury FOLLOW UP VISIT: - If not already scheduled, please call the office to schedule a two week follow-up appointment in surgery office. Office number You also were found to have Acute Kidney Injury likely secondary to acute illness. Outbound Sales Consultant consulted during your hospital stay. Your creatinine did increase up to 1.84 on day of discharge. You will need follow-up with nephrology with repeat blood work. Recommendations from [facility]: - You will need to get repeat blood work with basic metabolic panel (BMP) in the morning of 07/17/22 and 07/20/22. I have printed lab slips for you to take to a [facility]. - You will also need to get a set of labs 3-4 days prior to your office visit with Dr. Watson (08/03/2022) as these labs can take time to result so she has those results prior to your visit with her. So please get these set of labs done on Tuesday07/30/22. These orders are placed in the [facility] system so they will have the orders already when you arrive at the lab. ( you will not have a lab slip for these orders) - Again avoid any NSAIDs (Ibuprofen, Motrin, Aleve, Aspirin) Pending Studies at Discharge: No Stand-Alone Forms: [facility], Pain - Opioid Pain Management, Work/School Release, Smoking Cessation Medications and DC Order Prescriptions: New ciprofloxacin HCl [Cipro] 500 mg tablet 500 mg PO BID Qty: 20 0RF metronidazole 500 mg tablet 500 mg PO TID Qty: 30 0RF oxycodone-acetaminophen [Percocet] 5-325 mg tablet 1 tab PO Q6H PRN (Reason: pain) Qty: 10 0RF Discharge Orders: Discharge Order (Routine); Ordered 07/14/22 Ordered By: Randa Sanchez/Other Patient Handouts: Low-Fiber Diet, What Is Appendicitis? Admission Data Admit Date/Time: 07/10/22 19:37 Attending Provider: Maria Guadalupe Mak Admit Provider: Maria Guadalupe Mak Primary Care Provider: [place] Other Providers: Maria Guadalupe Mak ; Lorri Watson Other Interventions: Discharge Summary Assessment (RN) Last Done: 07/14/22 14:05
== END 2022-07-14 14:56 | disposition home or self-care (01) | DRG 371 ==
LOC: 3W 15:37 → ED 15:37 → 3W 20:24